=== PATIENT | male | born 1995 ===

== ENCOUNTER 2018-01-17 15:06 | Emergency (ER) | payer OTHER ==
--- NOTE | 2018-01-17 15:39 | UC ---
Eye Complaint HPI - HPI Summary HPI Summary: Patient to the urgent care today with a bruise under his right eye. Patient reports being hit in the face with the dogs home yesterday. Patient has no visual problems. NO Redness or irritation in the eye, no complaints of pain, there is no lacerations under the eye, no bruising or injury into the tear duct , lower lid the eye is completely intact - History of Current Complaint Chief Complaint: UCGeneralIllness Stated Complaint: STRATCH ON FACE*1DAY Time Seen by Provider: 01/17/18 15:26 Hx Obtained From: Patient Onset/Duration: Sudden Onset, Lasting Days - 1, Still Present Timing: Constant Severity Initially: Mild Severity Currently: None Aggravating Factor(s): Nothing Alleviating Factor(s): Nothing Associated Signs And Symptoms: Positive: Negative - Allergies/Home Medications Allergies/Adverse Reactions: Allergies Allergy/AdvReac Type Severity Reaction Status Date / Time Sulfa (Sulfonamide Allergy See Comment Verified 01/17/18 15:27 Antibiotics) Home Medications: Home Medications Divalproex ER TAB(*) [Depakote ER TAB(*)] 500 mg BID 01/17/18 [History Confirmed 01/17/18] Escitalopram Oxalate [Lexapro 20 mg] 1 tab DAILY 01/17/18 [History Confirmed ] busPIRone TAB* [Buspar TAB *] 1 tab BID 01/17/18 [History Confirmed 01/17/18] hydrOXYzine HCL TAB* [Atarax 10 MG TAB*] 1 tab Q6HR PRN 01/17/18 [History Confirmed 01/17/18] risperiDONE TAB* [Risperdal*] 1 tab BEDTIME 01/17/18 [History Confirmed 01/17/18 ] PMH/Surg Hx/FS Hx/Imm Hx Previously Healthy: No Psychological History: Anxiety, Depression - Surgical History Surgical History: Yes Surgery Procedure, Year, and Place: t&a - Family History Known Family History: Positive: None - Social History Occupation: Unemployed Lives: With Family Alcohol Use: None Substance Use Type: None Review of Systems Constitutional: Negative Skin: Bruising - under right eye Eyes: Negative ENT: Negative Respiratory: Negative Cardiovascular: Negative Gastrointestinal: Negative Genitourinary: Negative Motor: Negative Neurovascular: Negative Musculoskeletal: Negative Neurological: Negative Psychological: Negative Is Patient Immunocompromised?: No All Other Systems Reviewed And Are Negative: Yes Physical Exam Triage Information Reviewed: Yes Appearance: Well-Appearing, No Pain Distress, Well-Nourished Vital Signs Reviewed: Yes Eye Exam: Normal Eyes: Positive: Conjunctiva Clear, Other: - rerrla, eomi, no vision changes ENT Exam: Normal ENT: Positive: Normal ENT inspection, Hearing grossly normal. Negative: Nasal congestion, Nasal drainage, Trismus, Muffled voice, Hoarse voice Dental Exam: Normal Neck exam: Normal Neck: Positive: Supple, Nontender, No Lymphadenopathy Respiratory Exam: Normal Respiratory: Positive: Chest non-tender, No respiratory distress, No accessory muscle use Cardiovascular Exam: Normal Cardiovascular: Positive: RRR, Pulses Normal, Brisk Capillary Refill Musculoskeletal Exam: Normal Musculoskeletal: Positive: Strength Intact, ROM Intact, No Edema Neurological Exam: Normal Neurological: Positive: Alert, Muscle Tone Normal Psychological Exam: Normal Skin Exam: Normal Eye Complaint Course/Dx - Course Course Of Treatment: Ice Tylenol ibuprofen recheck when necessary - Differential Dx/Diagnosis Provider Diagnoses: Contusion below right eye Discharge - Sign-Out/Discharge Documenting (check all that apply): Discharge - Discharge Plan Condition: Stable Disposition: HOME Patient Education Materials: Black Eye (ED) Referrals: [facility] [place] [facility]FERR[facility] [Outside] - If Needed - Billing Disposition and Condition Condition: STABLE Disposition: HOME
[2018-01-17 15:40] VITALS: BP 123/62
== END 2018-01-17 15:48 | disposition home or self-care (01) ==
LOC: UCCORT 15:06
DX: S00.11XA Contusion of right eyelid and periocular area, initial encounter (principal); W22.8XXA Striking against or struck by other objects, initial encounter; Y93.9 Activity, unspecified; Y92.9 Unspecified place or not applicable; F41.8 Other specified anxiety disorders; Z88.1 Allergy status to other antibiotic agents
CPT/HCPCS: 99201; G0463

== ENCOUNTER 2019-06-06 21:33 | Emergency (ER) | payer OTHER ==
[2019-06-06 21:44] VITALS: BP 155/88
[2019-06-06] MEDS ORDERED: Amoxicillin/Clavulanate TAB* 875 MG PO ONE (21:52)
--- NOTE | 2019-06-06 21:59 | UC ---
Bite Injury/Animal HPI - HPI Summary HPI Summary: 24 yo male presents here soon after dog bite to right calf was on bike imm status of dog unknown Td upto date - History of Current Complaint Chief Complaint: UCBiteInjury Stated Complaint: DOG BITE Time Seen by Provider: 06/06/19 21:38 Hx Obtained From: Patient Severity Currently: Severe Severity Initially: Severe Pain Intensity: 8 Pain Scale Used: 0-10 Numeric Onset/Duration: Sudden Onset Type of Bite: Animal Has Animal Been Immunized?: Unknown Character: Abrasion/Laceration - abrasion Aggravating Factor(s): Other - wt bering Alleviating Factor(s): Rest Associated Signs And Symptoms: Positive: Swelling - slight. Negative: Fever, Erythema, Drainage, Lymphadenopathy, Numbness/Tingling, Limited ROM Hx of Bite: Unprovoked Animal Control Notified: Yes Body - Head: 1 - 3 cm superficial abrasion, no PW - Allergies/Home Medications Allergies/Adverse Reactions: Allergies Allergy/AdvReac Type Severity Reaction Status Date / Time Sulfa (Sulfonamide Allergy See Comment Verified 06/06/19 21:44 Antibiotics) Home Medications: Home Medications NK [No Home Medications Reported] 06/06/19 [History Confirmed 06/06/19] PMH/Surg Hx/FS Hx/Imm Hx Previously Healthy: Yes Psychological History: Anxiety - Surgical History Surgical History: Yes Surgery Procedure, Year, and Place: t&a - Family History Known Family History: Positive: Hypertension - Social History Alcohol Use: Weekly Substance Use Type: Marijuana Substance Use Comment - Amount & Last Used: smokes every day Smoking Status (MU): Current Every Day Smoker Type: Cigarettes Amount Used/How Often: mixes with marijuana - Immunization History Most Recent Tetanus Shot: week or two ago Review of Systems All Other Systems Reviewed And Are Negative: Yes Constitutional: Positive: Negative Skin: Positive: Negative Eyes: Positive: Negative ENT: Positive: Negative Respiratory: Positive: Negative Cardiovascular: Positive: Negative Gastrointestinal: Positive: Negative Genitourinary: Positive: Negative Motor: Positive: Negative Neurovascular: Positive: Negative Musculoskeletal: Positive: Negative Neurological: Positive: Negative Psychological: Positive: Negative Physical Exam Triage Information Reviewed: Yes Appearance: Well-Appearing, No Pain Distress, Well-Nourished Vital Signs: Initial Vital Signs Temp 100.2 F 06/06/19 21:39 Pulse 111 06/06/19 21:39 Resp 22 06/06/19 21:39 BP 155/88 06/06/19 21:39 Pulse Ox 98 06/06/19 21:39 Vital Signs Reviewed: Yes Eyes: Positive: Conjunctiva Clear ENT: Positive: Hearing grossly normal, Uvula midline. Negative: Nasal congestion, Nasal drainage, Trismus, Muffled voice, Hoarse voice Dental Exam: Normal Neck: Positive: Supple, Nontender, No Lymphadenopathy Respiratory: Positive: Lungs clear, Normal breath sounds, No respiratory distress Cardiovascular: Positive: RRR, No Murmur Musculoskeletal: Positive: Strength Intact, ROM Intact Neurological: Positive: Alert Psychological Exam: Normal Skin Exam: Other - see image Bite Injury Course/Dx - Differential Dx/Diagnosis Provider Diagnosis: Dog bite of right calf, Abrasion, right lower leg, initial encounter Discharge ED - Sign-Out/Discharge Documenting (check all that apply): Patient Departure All imaging exams completed and their final reports reviewed: No Studies - Discharge Plan Condition: Stable Disposition: HOME Prescriptions: Amoxicillin/Clavulanate TAB* [Augmentin TAB 875*] 875 mg PO BID #6 tab Patient Education Materials: Animal Bite (ED) Referrals: No Primary Care Phys,NOPCP [Primary Care Provider] - - Billing Disposition and Condition Condition: STABLE Disposition: Home
== END 2019-06-06 22:07 | disposition home or self-care (01) ==
LOC: UCCORT 21:33
DX: S80.811A Abrasion, right lower leg, initial encounter (principal); W54.0XXA Bitten by dog, initial encounter; Y93.55 Activity, bike riding; Y92.9 Unspecified place or not applicable; F17.210 Nicotine dependence, cigarettes, uncomplicated
CPT/HCPCS: 99212; A9270-GY; G0463